=== PATIENT | male | born 1965 ===

== ENCOUNTER 2022-03-17 06:11 | Day surgery (SDC) | payer OTHER ==
[~2022-03-17] VITALS: Ht 165.1 cm; Wt 78.9 kg
[~2022-03-17 06:11] MED LIST: NABUMETONE500 MG PO; PERCOCET 5/3251 TAB PO; TOPROL XL25 M1
== END 2022-03-17 16:45 | disposition home or self-care (01) ==
LOC: CIR.AMB 06:11
PROVIDERS: ATTEND Specialist
DX: K40.90 Unilateral inguinal hernia, without obstruction or gangrene, not specified as recurrent (principal); Z20.822 Contact with and (suspected) exposure to COVID-19